=== PATIENT | female | born 1970 | race Caucasian/White ===

== ENCOUNTER 2021-06-03 18:31 | Outpatient (CLI) | payer SELFPAY | END 2021-06-03 18:32 | disposition EMS.NT | LOC: EMS 18:31 | DX: T63.461A Toxic effect of venom of wasps, accidental (unintentional), initial encounter (principal) ==

== ENCOUNTER 2021-09-24 17:16 | Outpatient (CLI) | payer OTHER | END 2021-09-24 17:17 | disposition critical access hospital (66) | LOC: EMS 17:16 | DX: R07.89 Other chest pain (principal); R06.02 Shortness of breath | CPT/HCPCS: A0425; A0429 ==

== ENCOUNTER 2021-09-24 17:53 | Inpatient (IN) | payer OTHER ==
[2021-09-24 18:32] LABS: HCT - HEMATOCRIT 43.6 % (42.0-52.0); HGB - HEMOGLOBIN 14.8 g/dL (14.0-18.0); MEAN CORPUSCULAR HEMOGLOBIN 30.2 pg (27.0-31.0); MEAN CORPUSCULAR HGB CONC 33.9 g/dL (32.0-36.0); RED CELL DISTRIBUTION WIDTH 12.7 % (12.0-15.0); WHITE BLOOD COUNT 5.7 x10^3/uL (4.8-10.8)
[2021-09-24 18:33] LABS: BASOPHILS % (AUTO) 0.5 %; EOSINOPHILS # (AUTO) 0.2 10^3/uL (0.0-0.7); EOSINOPHILS % (AUTO) 3.5 %; LYMPHOCYTES # (AUTO) 1.4 10^3/uL (1.5-3.5); LYMPHOCYTES % (AUTO) 23.7 %; MEAN PLATELET VOLUME 11.1 fL (7.4-11.4); MONOCYTES # (AUTO) 0.4 10^3/uL (0.0-1.0); MONOCYTES % (AUTO) 7.3 %; NEUTROPHILS # (AUTO) 3.7 10^3/uL (1.5-6.6); NEUTROPHILS % (AUTO) 64.7 %; PLT - PLATELET COUNT 164 10^3/uL (130-450)
--- NOTE | 2021-09-24 18:38 | ED Physician Documentation ---
History of Present Illness - Stated complaint Stated Complaint: SOA - Chief complaint Chief Complaint: Cardiac - Additonal information Additional information: 50-year-old male presents emergency department via EMS for sudden onset sharp chest pain. It began when he was walking up the roadway from the [facility]. He denies any history of similar in the past. 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 No tobacco no drugs no medications. States that when he had anesthesia in the past his heart rate dropped to less than 30. Review of Systems Constitutional: reports: Reviewed and negative Eyes: reports: Reviewed and negative Nose: reports: Reviewed and negative Throat: reports: Reviewed and negative Cardiac: reports: Chest pain / pressure Respiratory: reports: Dyspnea GI: reports: Reviewed and negative : reports: Reviewed and negative Skin: reports: Reviewed and negative PD PAST MEDICAL HISTORY - Allergies Allergies/Adverse Reactions: Allergies Allergy/AdvReac Type Severity Reaction Status Date / Time No Known Drug Allergies Allergy Verified 09/24/21 18:04 PD ED PE EXPANDED - General General: Alert, No acute distress - Cardiac Cardiac: Emanuel, Radial strong equal, Pedal strong equal, Cap refill < 2 sec. No: Murmur Present - Respiratory Respiratory: Labored, Other (Absent breath sounds left anterior and posterior lung esparza.) - Abdomen Abdomen: Normal Bowel sounds. No: Tender to palpation - Derm Derm: Normal color, Warm and dry. No: Rash - Extremities Extremities: Normal. No: Deformity, Tenderness Results - Vitals Vitals: Vital Signs - 24 hr 09/24/21 09/24/21 18:03 18:17 Temperature 37.2 C Heart Rate 69 57 L Respiratory 18 20 Rate Blood Pressure 149/85 H 135/110 H O2 Saturation 92 95 Oxygen O2 Source Room air - EKG (time done) 1801 Rate: Rate (enter#) (68) Rhythm: NSR Intervals: Prolonged CA. No: Prolonged QT QRS: Poor R wave progression Ischemia: Normal ST segments Compare to prior EKG: Old EKG unavailable Computer interpretation: Agree with computer - Labs Labs: Laboratory Tests 09/24/21 09/24/21 09/24/21 18:05 18:05 18:05 WBC RBC Hgb Hct MCV MCH MCHC RDW Plt Count MPV Neut # (Auto) Lymph # (Auto) [place] # (Auto) Eos # (Auto) Baso # (Auto) Absolute Nucleated RBC Nucleated RBC % PT INR Sodium 138 Potassium 4.1 Chloride 101 Carbon Dioxide 26 Anion Gap 11.0 BUN 24 H Creatinine 0.9 Estimated GFR (MDRD) 90 Glucose 105 H Calcium 9.3 Total Bilirubin 0.9 AST 20 ALT 17 Alkaline Phosphatase 63 Troponin I High Sens 5.5 B-Natriuretic Peptide 28 Total Protein 7.5 Albumin 4.4 Globulin 3.1 Albumin/Globulin Ratio 1.4 Lipase 38 09/24/21 09/24/21 18:25 18:30 WBC 5.7 RBC 4.90 Hgb 14.8 Hct 43.6 MCV 89.0 MCH 30.2 MCHC 33.9 RDW 12.7 Plt Count 164 MPV 11.1 Neut # (Auto) 3.7 Lymph # (Auto) 1.4 L [place] # (Auto) 0.4 Eos # (Auto) 0.2 Baso # (Auto) 0.0 Absolute Nucleated RBC 0.00 Nucleated RBC % 0.0 PT 11.0 INR 1.0 Sodium Potassium Chloride Carbon Dioxide Anion Gap BUN Creatinine Estimated GFR (MDRD) Glucose Calcium Total Bilirubin AST ALT Alkaline Phosphatase Troponin I High Sens B-Natriuretic Peptide Total Protein Albumin Globulin Albumin/Globulin Ratio Lipase - Rads (name of study) CXR Radiology: Final report received (Left pneumothorax with complete collapse of the left lung. There is mild left to right mediastinal shift.) PD MEDICAL DECISION MAKING - ED course Complexity details: reviewed results, re-evaluated patient, considered differential, d/w patient ED course: 50-year-old male presents emergency department with sudden onset left-sided chest pain. Began when he was walking up the hill from the [facility]. He endorses some shortness of breath. No radiation of the chest pain. No history of similar. Non-smoker. 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 No history of hypertension. Screening EKG was nonischemic however the chest x-ray showed a massive left- sided pneumothorax. There was some mild associated mediastinal shift however the patient was not hypoxic tachycardic or hypotensive. Dr. Villalobos was called to the bedside and she did place a 24 [place] left-sided chest tube. On reexamination the patient was having improvement in the pneumothorax though clearly not fully resolved. The patient did receive 1 mg of Versed as well as 1 mg of morphine as anxiolysis for the procedure only. This was not procedural sedation. Further care to be dictated by Dr. Villalobos. Departure - Departure Disposition: 66 [facility] DC/Xfer Clinical Impression: Pneumothorax, left
--- NOTE | 2021-09-24 18:39 | XRAY Report ---
PROCEDURE: Chest 1 View X-Ray INDICATIONS: Chest Pain TECHNIQUE: One view of the chest was acquired. COMPARISON: None FINDINGS: Surgical changes and devices: None. Lungs and pleura: There is a left pneumothorax with complete collapse of the left lung. The right l surya is clear. Mediastinum: Mediastinal contours appear normal. Heart size is normal. Mild left to right mediasti nal shift. Bones and chest wall: No suspicious bony lesions. Overlying soft tissues appear unremarkable. IMPRESSION: Left pneumothorax with complete collapse of the left lung. There is mild [id number] m ediastinal shift. Findings were discussed with Dr. Mancilla at 6:37 PM on 09/24/2021. Reviewed by: Nik Martinez on 09/24/2021 6:37 PM PST Approved by: Nik Martinez on 09/24/2021 6:37 PM [facility] Station ID: [id number]
[2021-09-24] MEDS ORDERED: lidocaine 1% 20 ML MDV SUBQ ONE (18:44)
[2021-09-24] MEDS ORDERED: MORPHINE 2 MG/ML CARPUJECT IVP STA ×2 (18:45→20:03)
[2021-09-24] MEDS ORDERED: MIDAZOLAM 2 MG/2 ML VIAL IVP STA (18:45)
[2021-09-24 18:54] LABS: BILIRUBIN,TOTAL 0.9 mg/dL (0.2-1.0); CALCIUM 9.3 mg/dL (8.5-10.3); CREATININE 0.9 mg/dL (0.6-1.2); POTASSIUM 4.1 mmol/L (3.5-5.0)
[2021-09-24 18:55] LABS: ALBUMIN 4.4 g/dL (3.2-5.5); ALBUMIN/GLOBULIN RATIO 1.4 (1.0-2.2); TOTAL PROTEIN 7.5 g/dL (6.7-8.2)
[2021-09-24] MEDS ORDERED: MORPHINE 2 MG/ML CARPUJECT IVP ONE ×2 (18:56)
[2021-09-24] MEDS ORDERED: LORazepam 2 MG/ML VIAL IVP PRN (19:38)
[2021-09-24] MEDS ORDERED: ONDANSETRON 4 MG/2 ML VIAL IVP PRN (19:38)
[2021-09-24] MEDS ORDERED: LACTATED RINGERS 1,000 ML IV SCH (20:00)
--- NOTE | 2021-09-24 20:09 | HISTORY & PHYSICAL EXAMINATION ---
HPI - Admitted From Admitted from: ED - History Obtained From History obtained from: Patient Exam limitations: No limitations - History of Present Illness Pain/Problem Location Description: Acute shortness of breath Severity at the worst: reports: Severe Pain Quality: reports: Aching Context-Pain started w/: reports: Exertion ([place] Timing: reports: Abrupt onset Duration: reports: Minutes: (About 60) Improved with: reports: Nothing Worsened by: reports: Exertion Associated symptoms: reports: Shortness of air, Feeling faint / dizzy, Palpitations HPI Comment/Other: Pleasant and generally healthy gentleman who was in his usual state of health when he experienced sudden onset of shortness of breath [place]. [place] he had a sharp pain in his chest and had acute shortness of breath. He was transported to the ED via EMS. He was evaluated and found to have a near complete left sided pneumothorax. I was consulted for definitive management. He has never had a similar episode. He doesn't have any significant underlying medical issues. He is very physically active and reports he has a resting heart rate around 50. He previously had a hernia repair and says the only issue was the monitors going off because of his heart rate. He takes no medications PMH/PSH - Past Medical History Cardiovascular: positive: None Respiratory: positive: None Neuro: positive: None Endocrine/Autoimmune: positive: None GI: positive: None : positive: None HEENT: positive: None Psych: positive: None Musculoskeletal: positive: None Derm: positive: None MRSA Hx?: No - Past Surgical History /[employer] TE[employer]ER: positive: Other (Inguinal hernia repair) Social & Family Hx - Social History Does the pt smoke?: No Does the pt have substance abuse?: No - POLST POLST Status: Full Code Meds/Allgy - Allergies Allergies/Adverse Reactions: Allergies Allergy/AdvReac Type Severity Reaction Status Date / Time No Known Drug Allergies Allergy Verified 09/24/21 18:04 Review of Systems - All Other Systems All Other Systems: reports: Reviewed and negative Exam - Vital Signs Vital Signs: Vital Signs x48h Temp Pulse Resp BP Pulse Ox 09/24/21 19:30 57 L 22 115/84 H 99 09/24/21 19:29 57 L 17 123/81 H 100 09/24/21 18:17 57 L 20 135/110 H 95 09/24/21 18:03 37.2 C 69 18 149/85 H 92 - Physical Exam General Appearance: positive: Alert, Moderate distress Eyes Bilateral: positive: Normal inspection, PERRL, EOMI ENT: positive: ENT inspection nml Neck: positive: Nml inspection Respiratory: positive: Other (No breath sounds on the left. Clear on the right) Cardiovascular: positive: Tachycardia Peripheral Pulses: positive: 1+ Abdomen: positive: Non-tender, Nml bowel sounds, No distention Back: positive: Nml inspection Skin: positive: Color nml Extremities: positive: Non-tender, Full ROM Neurologic/Psychiatric: positive: Oriented x3 Results - Lab Results Fish Bones: 09/24/21 18:25 09/24/21 18:05 Other Lab Results: Lab Results x24hrs 09/24/21 09/24/21 09/24/21 Range/Units 18:30 18:25 18:05 WBC 5.7 (4.8-10.8) x10^3/uL RBC 4.90 (4.70-6.10) 10^6/uL Hgb 14.8 (14.0-18.0) g/dL Hct 43.6 (42.0-52.0) % MCV 89.0 (80.0-94.0) fL MCH 30.2 (27.0-31.0) pg MCHC 33.9 (32.0-36.0) g/dL RDW 12.7 (12.0-15.0) % Plt Count 164 (130-450) 10^3/uL MPV 11.1 (7.4-11.4) fL Neut # (Auto) 3.7 (1.5-6.6) 10^3/uL Lymph # (Auto) 1.4 L (1.5-3.5) 10^3/uL [place] # (Auto) 0.4 (0.0-1.0) 10^3/uL Eos # (Auto) 0.2 (0.0-0.7) 10^3/uL Baso # (Auto) 0.0 (0.0-0.1) 10^3/uL Absolute Nucleated RBC 0.00 x10^3/uL Nucleated RBC % 0.0 /100WBC PT 11.0 (9.9-12.6) secs INR 1.0 (0.8-1.2) Sodium (135-145) mmol/L Potassium (3.5-5.0) mmol/L Chloride (101-111) mmol/L Carbon Dioxide (21-32) mmol/L Anion Gap (6-13) BUN (6-20) mg/dL Creatinine (0.6-1.2) mg/dL Estimated GFR (MDRD) (>89) Glucose (70-100) mg/dL Calcium (8.5-10.3) mg/dL Total Bilirubin (0.2-1.0) mg/dL AST (10-42) IU/L ALT (10-60) IU/L Alkaline Phosphatase (42-121) IU/L Troponin I High Sens (2.3-19.7) ng/L B-Natriuretic Peptide 28 (5-100) pg/mL Total Protein (6.7-8.2) g/dL Albumin (3.2-5.5) g/dL Globulin (2.1-4.2) g/dL Albumin/Globulin Ratio (1.0-2.2) Lipase (22-51) U/L 09/24/21 09/24/21 Range/Units 18:05 18:05 WBC (4.8-10.8) x10^3/uL RBC (4.70-6.10) 10^6/uL Hgb (14.0-18.0) g/dL Hct (42.0-52.0) % MCV (80.0-94.0) fL MCH (27.0-31.0) pg MCHC (32.0-36.0) g/dL RDW (12.0-15.0) % Plt Count (130-450) 10^3/uL MPV (7.4-11.4) fL Neut # (Auto) (1.5-6.6) 10^3/uL Lymph # (Auto) (1.5-3.5) 10^3/uL [place] # (Auto) (0.0-1.0) 10^3/uL Eos # (Auto) (0.0-0.7) 10^3/uL Baso # (Auto) (0.0-0.1) 10^3/uL Absolute Nucleated RBC x10^3/uL Nucleated RBC % /100WBC PT (9.9-12.6) secs INR (0.8-1.2) Sodium 138 (135-145) mmol/L Potassium 4.1 (3.5-5.0) mmol/L Chloride 101 (101-111) mmol/L Carbon Dioxide 26 (21-32) mmol/L Anion Gap 11.0 (6-13) BUN 24 H (6-20) mg/dL Creatinine 0.9 (0.6-1.2) mg/dL Estimated GFR (MDRD) 90 (>89) Glucose 105 H (70-100) mg/dL Calcium 9.3 (8.5-10.3) mg/dL Total Bilirubin 0.9 (0.2-1.0) mg/dL AST 20 (10-42) IU/L ALT 17 (10-60) IU/L Alkaline Phosphatase 63 (42-121) IU/L Troponin I High Sens 5.5 (2.3-19.7) ng/L B-Natriuretic Peptide (5-100) pg/mL Total Protein 7.5 (6.7-8.2) g/dL Albumin 4.4 (3.2-5.5) g/dL Globulin 3.1 (2.1-4.2) g/dL Albumin/Globulin Ratio 1.4 (1.0-2.2) Lipase 38 (22-51) U/L - Diagnostic Imaging Results Diagnostic Imaging Results Comments: Initial xray shows near complete left pneumothorax with near complete re- expansion after chest tube placement Impression/Plan - Problem List Problem List: Spontaneous pneumothrax in the setting of a very healthy and active 50 year old gentleman. A thoracostomy tube has been placed. We will leave it on suction over night and re-assess in the AM. CT of the chest in the AM to evaluate for cause.
--- NOTE | 2021-09-24 20:21 | XRAY Report ---
PROCEDURE: Chest for Line Placement INDICATIONS: S/P CHEST TUBE PLACEMENT TECHNIQUE: One view of the chest was acquired. COMPARISON: 09/24/2021. FINDINGS: Surgical changes and devices: There is a new left chest tube with the tip extending medially to the m ediastinum. Lungs and pleura: There is a small residual left pneumothorax, markedly decreased from the prior mark dy, with interval reexpansion of the left lung. No pleural effusions. No right pneumothorax. There ar e patchy indistinct opacities within the left lung which are nonspecific and may represent atelectasi s or areas of reexpansion edema. Mediastinum: Mediastinal contours appear normal. Heart size is normal. Bones and chest wall: No suspicious bony lesions. Overlying soft tissues appear unremarkable. IMPRESSION: 1. Interval placement of a left chest tube with marked decrease in left pneumothorax and reexpansion of the left lung. 2. Small residual left pneumothorax without evidence of tension. 3. Indistinct patchy opacities within the left lung are nonspecific and may represent atelectasis or reexpansion edema among other etiologies. Reviewed by: Gigi Youssef MD on 09/24/2021 8:20 PM PST Approved by: Gigi Youssef MD on 09/24/2021 8:20 PM PST Station ID: [id number]
[2021-09-24] MEDS: SODIUM CHLORIDE FLUSH 0.9% 10 ML SYRINGE IVP PRN ×2 (20:45→21:19)
[2021-09-24] MEDS: KETOROLAC 30 MG/ML VIAL IVP SCH (21:19)
[2021-09-24] MEDS: ACETAMINOPHEN 325 MG TABLET PO PRN (21:19)
[2021-09-24] MEDS: oxyCODONE 5 MG TABLET PO PRN (21:19)
[2021-09-24 21:49] LABS: B. PARAPERTUSSIS- RESP PCR PAN NOT DETECTED; B. PERTUSSIS- RESP PCR PANEL NOT DETECTED; C. PNEUMONIAE- RESP PCR PANEL NOT DETECTED; CORONAVIRUS 229E-RESP PCR NOT DETECTED; CORONAVIRUS HKU1-RESP PCR NOT DETECTED; CORONAVIRUS NL63-RESP PCR NOT DETECTED; CORONAVIRUS OC43-RESP PCR NOT DETECTED; HUMAN METAPNEUMOVIRUS NOT DETECTED; INFLUENZA A- RESP PCR PANEL NOT DETECTED; INFLUENZA B - RESP PCR PANEL NOT DETECTED; M. PNEUMONIAE- RESP PCR PANEL NOT DETECTED; PARAINFLUENZA VIRUS 1 NOT DETECTED; PARAINFLUENZA VIRUS 2 NOT DETECTED; PARAINFLUENZA VIRUS 3 NOT DETECTED; PARAINFLUENZA VIRUS 4 NOT DETECTED; RHINOVIRUS/ENTEROVIRUS NOT DETECTED; RSV- RESP PCR PANEL NOT DETECTED; SARS-CoV-2 -RESP PCR PANEL NOT DETECTED
[2021-09-24] MEDS: HYDROmorphone 0.5 MG/0.5 ML SYRINGE IVP PRN (23:45)
[2021-09-24] MEDS: ceFAZolin 2 GM in SODIUM CHLORIDE 0.9% 100ML 100 ML IV SCH (23:46)
[2021-09-25] MEDS ORDERED: KETOROLAC 30 MG/ML VIAL ONE (03:21)
[2021-09-25] MEDS: KETOROLAC 30 MG/ML VIAL IVP SCH (03:26)
[2021-09-25] MEDS: SODIUM CHLORIDE FLUSH 0.9% 10 ML SYRINGE IVP SCH ×3 (03:30→20:03)
[2021-09-25] MEDS: HYDROmorphone 0.5 MG/0.5 ML SYRINGE IVP PRN (06:03)
[2021-09-25] MEDS: ceFAZolin 2 GM in SODIUM CHLORIDE 0.9% 100ML 100 ML IV SCH (06:05)
[2021-09-25] MEDS: PANTOPRAZOLE 40 MG TABLET PO SCH (06:07)
[2021-09-25] MEDS: ACETAMINOPHEN 325 MG TABLET PO PRN ×3 (08:34→20:45)
[2021-09-25] MEDS: oxyCODONE 5 MG TABLET PO PRN ×4 (08:36→20:44)
[2021-09-25] MEDS ORDERED: KETOROLAC 30 MG/ML VIAL IVP SCH (09:00)
--- NOTE | 2021-09-25 09:11 | PROVIDER PROGRESS NOTE ---
Subjective - General Admit Date: 09/24/21 Procedure Date: 09/24/21 Post Op Days: 1 Procedure Performed: Left thoracostomy tube placement - Review of Systems Wound/Incisions: positive: Dressing dry and intact Drain Type: 24 F Chest tube Drain Output Description: serous General: positive: No symptoms HEENT: positive: No symptoms Pulmonary: positive: Pleuritic chest pain (Described as aching) Cardiovascular: positive: No symptoms Gastrointestinal: positive: No symptoms Genitourinary: positive: No symptoms Musculoskeletal: positive: No symptoms Skin: positive: No symptoms Psychiatric: positive: No symptoms All Other Systems: positive: Reviewed and negative - Other Other Information/Narrative: Having some aching in his left chest this AM but has not had any pain medication since last evening. Denies any shortness of breath. Objective - Patient Data Reviewed Vital Signs: Yes Vital Signs: Vital Signs x48h Temp Pulse Resp BP Pulse Ox 09/25/21 08:08 36.7 C 55 L 17 127/72 95 09/25/21 04:08 36.7 C 44 L 18 117/71 100 Weight: Weight 09/23/21 09/24/21 09/25/21 23:59 23:59 23:59 Weight (kg) 62.5 kg Intake & Output: Intake and Output Totals x24h 09/23/21 09/24/21 09/25/21 23:59 23:59 23:59 Intake Total 50 600 Output Total 400 Balance -350 600 - Lab Results Lab Results: 09/24/21 18:25 09/24/21 18:05 Other Lab Results: Lab Results x24hrs 09/24/21 09/24/21 09/24/21 Range/Units 19:52 18:30 18:25 WBC 5.7 (4.8-10.8) x10^3/uL RBC 4.90 (4.70-6.10) 10^6/uL Hgb 14.8 (14.0-18.0) g/dL Hct 43.6 (42.0-52.0) % MCV 89.0 (80.0-94.0) fL MCH 30.2 (27.0-31.0) pg MCHC 33.9 (32.0-36.0) g/dL RDW 12.7 (12.0-15.0) % Plt Count 164 (130-450) 10^3/uL MPV 11.1 (7.4-11.4) fL Neut # (Auto) 3.7 (1.5-6.6) 10^3/uL Lymph # (Auto) 1.4 L (1.5-3.5) 10^3/uL [place] # (Auto) 0.4 (0.0-1.0) 10^3/uL Eos # (Auto) 0.2 (0.0-0.7) 10^3/uL Baso # (Auto) 0.0 (0.0-0.1) 10^3/uL Absolute Nucleated RBC 0.00 x10^3/uL Nucleated RBC % 0.0 /100WBC PT 11.0 (9.9-12.6) secs INR 1.0 (0.8-1.2) Sodium (135-145) mmol/L Potassium (3.5-5.0) mmol/L Chloride (101-111) mmol/L Carbon Dioxide (21-32) mmol/L Anion Gap (6-13) BUN (6-20) mg/dL Creatinine (0.6-1.2) mg/dL Estimated GFR (MDRD) (>89) Glucose (70-100) mg/dL Calcium (8.5-10.3) mg/dL Total Bilirubin (0.2-1.0) mg/dL AST (10-42) IU/L ALT (10-60) IU/L Alkaline Phosphatase (42-121) IU/L Troponin I High Sens (2.3-19.7) ng/L B-Natriuretic Peptide (5-100) pg/mL Total Protein (6.7-8.2) g/dL Albumin (3.2-5.5) g/dL Globulin (2.1-4.2) g/dL Albumin/Globulin Ratio (1.0-2.2) Lipase (22-51) U/L Nasal Adenovirus (PCR) NOT DETECTED Nasal B. parapertussis DNA (PCR) NOT DETECTED Nasal Coronavir 229E PCR NOT DETECTED Nasal Coronavir HKU1 PCR NOT DETECTED Nasal Coronavir NL63 PCR NOT DETECTED Nasal Coronavir OC43 PCR NOT DETECTED Nasal Enterovir/Rhinovir PCR NOT DETECTED Nasal Influenza B PCR NOT DETECTED Nasal Influenza A PCR NOT DETECTED Nasal Parainfluen 1 PCR NOT DETECTED Nasal Parainfluen 2 PCR NOT DETECTED Nasal Parainfluen 3 PCR NOT DETECTED Nasal Parainfluen 4 PCR NOT DETECTED Nasal RSV (PCR) NOT DETECTED Nasal B.pertussis DNA PCR NOT DETECTED Nasal C.pneumoniae (PCR) NOT DETECTED Josh Human Metapneumo PCR NOT DETECTED Nasal M.pneumoniae (PCR) NOT DETECTED Nasal SARS-CoV-2 (PCR) NOT DETECTED 09/24/21 09/24/21 09/24/21 Range/Units 18:05 18:05 18:05 WBC (4.8-10.8) x10^3/uL RBC (4.70-6.10) 10^6/uL Hgb (14.0-18.0) g/dL Hct (42.0-52.0) % MCV (80.0-94.0) fL MCH (27.0-31.0) pg MCHC (32.0-36.0) g/dL RDW (12.0-15.0) % Plt Count (130-450) 10^3/uL MPV (7.4-11.4) fL Neut # (Auto) (1.5-6.6) 10^3/uL Lymph # (Auto) (1.5-3.5) 10^3/uL [place] # (Auto) (0.0-1.0) 10^3/uL Eos # (Auto) (0.0-0.7) 10^3/uL Baso # (Auto) (0.0-0.1) 10^3/uL Absolute Nucleated RBC x10^3/uL Nucleated RBC % /100WBC PT (9.9-12.6) secs INR (0.8-1.2) Sodium 138 (135-145) mmol/L Potassium 4.1 (3.5-5.0) mmol/L Chloride 101 (101-111) mmol/L Carbon Dioxide 26 (21-32) mmol/L Anion Gap 11.0 (6-13) BUN 24 H (6-20) mg/dL Creatinine 0.9 (0.6-1.2) mg/dL Estimated GFR (MDRD) 90 (>89) Glucose 105 H (70-100) mg/dL Calcium 9.3 (8.5-10.3) mg/dL Total Bilirubin 0.9 (0.2-1.0) mg/dL AST 20 (10-42) IU/L ALT 17 (10-60) IU/L Alkaline Phosphatase 63 (42-121) IU/L Troponin I High Sens 5.5 (2.3-19.7) ng/L B-Natriuretic Peptide 28 (5-100) pg/mL Total Protein 7.5 (6.7-8.2) g/dL Albumin 4.4 (3.2-5.5) g/dL Globulin 3.1 (2.1-4.2) g/dL Albumin/Globulin Ratio 1.4 (1.0-2.2) Lipase 38 (22-51) U/L Nasal Adenovirus (PCR) Nasal B. parapertussis DNA (PCR) Nasal Coronavir 229E PCR Nasal Coronavir HKU1 PCR Nasal Coronavir NL63 PCR Nasal Coronavir OC43 PCR Nasal Enterovir/Rhinovir PCR Nasal Influenza B PCR Nasal Influenza A PCR Nasal Parainfluen 1 PCR Nasal Parainfluen 2 PCR Nasal Parainfluen 3 PCR Nasal Parainfluen 4 PCR Nasal RSV (PCR) Nasal B.pertussis DNA PCR Nasal C.pneumoniae (PCR) Josh Human Metapneumo PCR Nasal M.pneumoniae (PCR) Nasal SARS-CoV-2 (PCR) - Current Medications Current Medications: Current Medications Generic Name Dose Route Start Last Admin Trade Name Freq PRN Reason Stop Dose Admin Acetaminophen 650 mg 09/24/21 19:38 09/25/21 08:34 Acetaminophen 325 Mg Tablet PO 650 mg Q6HR PRN Administration PAIN Hydromorphone HCl 0.5 mg 09/24/21 19:38 09/25/21 06:03 Hydromorphone 0.5 Mg/0.5 Ml Syringe IVP 0.5 mg Q2H PRN Administration PAIN Lactated Ringer's 1,000 mls @ 75 mls/hr 09/24/21 20:00 09/24/21 21:26 Lr IV 75 mls/hr .[id number] ALICE Administration Oxycodone HCl 5 mg 09/24/21 19:38 09/25/21 08:36 Oxycodone 5 Mg Tablet PO 5 mg Q4HR PRN Administration PAIN Pantoprazole Sodium 40 mg 09/25/21 07:00 09/25/21 06:07 Pantoprazole 40 Mg Tablet PO 40 mg QDAC ALICE Administration Sodium Chloride 10 ml 09/25/21 01:00 09/25/21 03:30 Sodium Chloride Flush 0.9% 10 Ml Syringe IVP Not Given 0100,0900,1700 ALICE Sodium Chloride 10 ml 09/24/21 19:38 09/24/21 21:19 Sodium Chloride Flush 0.9% 10 Ml Syringe IVP 10 ml PRN PRN Administration NEEDED PER PROVIDER ORDERS - Physical Exam Wound/Incisions: positive: Dressing dry and intact, Other (No crepitance) General Appearance: positive: No acute distress Eyes Bilateral: positive: Normal inspection, PERRL, EOMI ENT: positive: ENT inspection nml Neck: positive: Nml inspection Respiratory: positive: No respiratory distress Cardiovascular: positive: Regular rate & rhythm Abdomen: positive: Non-tender, Nml bowel sounds Skin: positive: Color nml Extremities: positive: Non-tender Neurologic/Psychiatric: positive: Oriented x3 ABX Reporting Has patient been on IV antibiotics over the past 48 hours?: Yes Impression/Plan - Problem List Problem List: 1. Spontaneous left pneumothorax in the setting of a generally healthy and active 43 year old gentleman 2. Chest tube in place and working with a large air leak with each breath - leave on suction for now. 3. Pain is well controlled with acetaminophen, toradol, oxycodone and hydromorphone. 4. CT scan of the chest today to evaluate for cause and continued air leak 5. No GI issues 6. Can discontinue oxygen
[2021-09-25] MEDS: KETOROLAC 15 MG/ML VIAL IVP SCH ×2 (09:23→15:02)
[2021-09-25] MEDS: ENOXAPARIN 40 MG/0.4 ML SYRINGE SUBQ SCH (09:23)
[2021-09-25] MEDS: LACTATED RINGERS 1,000 ML IV SCH ×2 (09:30→20:45)
[2021-09-25] MEDS ORDERED: iohexoL-300 100 ML VIAL ONE (11:25)
--- NOTE | 2021-09-25 14:39 | CT Report ---
PROCEDURE: CHEST W INDICATIONS: Left pneumothorax with air leak CONTRAST: IV CONTRAST: Optiray 320 ml: 100 PO CONTRAST: *NO PO CONTRAST TECHNIQUE: After the administration of intravenous contrast, 1 mm axial images were acquired from the pulmonary apices through the posterior costophrenic angles. Axial 5 mm soft tissue kernel reconstructions were performed as well as 8 mm axial MIP and coronal and sagittal 5 mm reformations. For radiation dose reduction, the following was used: automated exposure control, adjustment of mA and/or kV according to patient size. Exam was performed with the patient's chest tube off and on suction. COMPARISON: Radiographs from 09/24/2021. FINDINGS: Image quality: Diagnostic. Lungs and pleura: With the patient off suction, there is a large left pneumothorax with significant collapse of the left upper and lower lobes. No evidence for tension pneumothorax. Left-sided chest tu be appears appropriately positioned with the side ports seen within the pleural cavity. With suction turned on, there is reexpansion of the left lung demonstrating small residual, predominantly left upp er lobe pneumothorax. There are prominent peripheral, medial pulmonary blebs noted in the left upper lobe. Largest measures approximately 2.7 x 5.0 cm in axial dimension (image 146/series 4) and approxi mately 6.4 cm in craniocaudal dimension (coronal image 41/series 7). Moderate dependent compressive a telectasis of the bilateral lung bases. Trace bilateral pleural effusions. There is associated crowdi ng of the bronchovascular of the posterior aspect of the bilateral lower lobes. No evidence to sugges t suspicious mass lesions or suspicious pulmonary nodules. There is also mild dependent atelectasis o f the posterior left upper lobe. No septal thickening or nodularity. Central and peripheral airways a re patent and normal in caliber. Mediastinum: Heart size is normal. No pericardial effusion. No mediastinal or hilar adenopathy by size criteria. Thoracic aorta and central pulmonary arteries are normal in size. Esophagus is lawrence l in caliber. No visible hiatal hernia. Bones and chest wall: No suspicious bony lesions. No acute rib fractures. No acute vertebral body c ompression fractures. No axillary or supraclavicular adenopathy by size criteria. The thyroid is no rmal in size and there are no incidental findings. Left chest wall subcutaneous emphysema compatible with recent chest tube placement. Abdomen: Visualized upper abdominal solid organs appear normal. Upper abdominal bowel loops are nor mal in caliber. Small subcentimeter hepatic dome hypodensity is incompletely characterized but likel y represents a cyst or hemangioma. IMPRESSION: 1. Large left pneumothorax with suction turned off and no evidence for tension pneumothorax. With suc tion on, there is near complete reexpansion of the left lung with small residual left upper lobe pneu mothorax. There are prominent medial left upper lobe pulmonary blebs with the largest measuring appro ximately 2.7 x 5.0 x 6.4 cm. This finding may explain the source of patient's pneumothorax. Otherwise , moderate dependent bibasilar atelectasis without evidence of suspicious pulmonary mass or adenopath y. 2. Appropriate positioning of the left chest tube. CLINICAL RECOMMENDATION STATEMENTS: In patients <35 years with an ITN detected on CT, MRI, or extrathyroidal ultrasound, the Committee re commends further evaluation with dedicated thyroid ultrasound if the nodule is "e1 cm and has no susp icious imaging features, and if the patient has normal life expectancy. In patients "e35 years with an ITN detected on CT, MRI, or extrathyroidal ultrasound, the Committee r ecommends further evaluation with dedicated thyroid ultrasound if the nodule is "e1.5 cm and has no s uspicious imaging features, and if the patient has normal life expectancy. (ACR, 2014) Findings were discussed telephonically with Dr. Villalobos at 1437 hrs. Reviewed by: Jordi Martinez MD on 09/25/2021 2:37 PM PST Approved by: Jordi Martinez MD on 09/25/2021 2:37 PM PST Station ID: [id number]
[2021-09-25] MEDS ORDERED: iohexoL-300 100 ML VIAL IVP ONE (15:08)
[2021-09-26] MEDS: SODIUM CHLORIDE FLUSH 0.9% 10 ML SYRINGE IVP SCH ×4 (01:35→23:49)
[2021-09-26] MEDS: oxyCODONE 5 MG TABLET PO PRN ×4 (02:52→21:44)
[2021-09-26] MEDS: PANTOPRAZOLE 40 MG TABLET PO SCH (06:36)
[2021-09-26] MEDS: LACTATED RINGERS 1,000 ML IV SCH ×2 (06:37→17:51)
[2021-09-26] MEDS: DOCUSATE SODIUM 100 MG CAPSULE PO SCH (08:06)
[2021-09-26] MEDS: ACETAMINOPHEN 325 MG TABLET PO PRN ×3 (08:06→21:44)
[2021-09-26] MEDS: ENOXAPARIN 40 MG/0.4 ML SYRINGE SUBQ SCH (08:07)
[2021-09-26 14:26] LABS: BASOPHILS % (AUTO) 0.4 %; EOSINOPHILS # (AUTO) 0.2 10^3/uL (0.0-0.7); EOSINOPHILS % (AUTO) 3.5 %; HCT - HEMATOCRIT 41.7 % (42.0-52.0); HGB - HEMOGLOBIN 14.2 g/dL (14.0-18.0); LYMPHOCYTES # (AUTO) 0.9 10^3/uL (1.5-3.5); MEAN CORPUSCULAR HEMOGLOBIN 30.6 pg (27.0-31.0); MEAN CORPUSCULAR HGB CONC 34.1 g/dL (32.0-36.0); MEAN CORPUSCULAR VOLUME 89.9 fL (80.0-94.0); MEAN PLATELET VOLUME 11.2 fL (7.4-11.4); MONOCYTES # (AUTO) 0.4 10^3/uL (0.0-1.0); MONOCYTES % (AUTO) 8.5 %; NEUTROPHILS # (AUTO) 3.3 10^3/uL (1.5-6.6); NEUTROPHILS % (AUTO) 68.6 %; PLT - PLATELET COUNT 147 10^3/uL (130-450); RED BLOOD COUNT 4.64 10^6/uL (4.70-6.10); RED CELL DISTRIBUTION WIDTH 12.6 % (12.0-15.0); WHITE BLOOD COUNT 4.8 x10^3/uL (4.8-10.8)
[2021-09-26 14:36] LABS: CALCIUM 9.3 mg/dL (8.5-10.3); CREATININE 0.9 mg/dL (0.6-1.2); POTASSIUM 4.2 mmol/L (3.5-5.0)
--- NOTE | 2021-09-26 15:19 | XRAY Report ---
PROCEDURE: Chest 1 View X-Ray INDICATIONS: Left pneumothorax TECHNIQUE: One view of the chest was acquired. COMPARISON: 09/24/[address] examination dated 09/25/2021. FINDINGS: Surgical changes and devices: Left-sided chest tube. Lungs and pleura: No pleural effusions. Small left pneumothorax, not significantly changed compared to 09/25/2021, allowing for differences in modality. Lungs are clear. Mediastinum: Mediastinal contours appear normal. Heart size is normal. Bones and chest wall: No suspicious bony lesions. Overlying soft tissues appear unremarkable. IMPRESSION: No change in small left pneumothorax. Reviewed by: Berhane Hassan MD on 09/26/2021 3:18 PM PST Approved by: Berhane Hassan MD on 09/26/2021 3:18 PM PST Station ID: [id number]
--- NOTE | 2021-09-26 21:02 | PROVIDER PROGRESS NOTE ---
Subjective - General Admit Date: 09/24/21 Procedure Date: 09/24/21 Post Op Days: 2 Procedure Performed: Left thoracostomy tube placement - Review of Systems Wound/Incisions: positive: Dressing dry and intact, Other (No crepitance) Drain Type: 24 F Chest tube Drain Output Description: serous General: positive: No symptoms HEENT: positive: No symptoms Pulmonary: positive: Pleuritic chest pain (Described as aching) Cardiovascular: positive: No symptoms Gastrointestinal: positive: No symptoms Genitourinary: positive: No symptoms Musculoskeletal: positive: No symptoms Skin: positive: No symptoms Psychiatric: positive: No symptoms All Other Systems: positive: Reviewed and negative - Other Other Information/Narrative: Rl reports his pain is well controlled. He denies any shortness of breath and is tolerating a regular diet. Air leak continues Objective - Patient Data Vital Signs: Vital Signs x48h Temp Pulse Resp BP Pulse Ox 09/26/21 16:26 36.5 C 52 L 14 134/73 H 95 09/26/21 15:50 36.7 C 54 L 20 144/76 H 97 Weight: Weight 09/24/21 09/25/21 09/26/21 23:59 23:59 23:59 Weight (kg) 62.5 kg Intake & Output: Intake and Output Totals x24h 09/24/21 09/25/21 09/26/21 23:59 23:59 23:59 Intake Total 50 3081.250 2776.667 Output Total 400 1485 370 Balance -350 0801.135 4649.667 - Lab Results Lab Results: 09/26/21 14:18 09/26/21 14:18 Other Lab Results: Lab Results x24hrs 09/26/21 09/26/21 Range/Units 14:18 14:18 WBC 4.8 (4.8-10.8) x10^3/uL RBC 4.64 L (4.70-6.10) 10^6/uL Hgb 14.2 (14.0-18.0) g/dL Hct 41.7 L (42.0-52.0) % MCV 89.9 (80.0-94.0) fL MCH 30.6 (27.0-31.0) pg MCHC 34.1 (32.0-36.0) g/dL RDW 12.6 (12.0-15.0) % Plt Count 147 (130-450) 10^3/uL MPV 11.2 (7.4-11.4) fL Neut # (Auto) 3.3 (1.5-6.6) 10^3/uL Lymph # (Auto) 0.9 L (1.5-3.5) 10^3/uL [place] # (Auto) 0.4 (0.0-1.0) 10^3/uL Eos # (Auto) 0.2 (0.0-0.7) 10^3/uL Baso # (Auto) 0.0 (0.0-0.1) 10^3/uL Absolute Nucleated RBC 0.00 x10^3/uL Nucleated RBC % 0.0 /100WBC Sodium 140 (135-145) mmol/L Potassium 4.2 (3.5-5.0) mmol/L Chloride 104 (101-111) mmol/L Carbon Dioxide 28 (21-32) mmol/L Anion Gap 8.0 (6-13) BUN 14 (6-20) mg/dL Creatinine 0.9 (0.6-1.2) mg/dL Estimated GFR (MDRD) 90 (>89) Glucose 100 (70-100) mg/dL Calcium 9.3 (8.5-10.3) mg/dL - Imaging Results Imaging Results Comments: CXR shows a stable apical pneumothorax on the left - Current Medications Current Medications: Current Medications Generic Name Dose Route Start Last Admin Trade Name Freq PRN Reason Stop Dose Admin Acetaminophen 650 mg 09/24/21 19:38 09/26/21 14:45 Acetaminophen 325 Mg Tablet PO 650 mg Q6HR PRN Administration PAIN Docusate Sodium 200 mg 09/26/21 09:00 09/26/21 08:06 Docusate Sodium 100 Mg Capsule PO 200 mg DAILY ALICE Administration Enoxaparin Sodium 40 mg 09/25/21 09:00 09/26/21 08:07 Enoxaparin 40 Mg/0.4 Ml Syringe SUBQ 40 mg DAILY ALICE Administration Hydromorphone HCl 0.5 mg 09/24/21 19:38 09/25/21 06:03 Hydromorphone 0.5 Mg/0.5 Ml Syringe IVP 0.5 mg Q2H PRN Administration PAIN Lactated Ringer's 1,000 mls @ 100 mls/hr 09/25/21 09:16 09/26/21 17:51 Lr IV 100 mls/hr .Q10H ALICE Administration Oxycodone HCl 5 mg 09/24/21 19:38 09/26/21 14:45 Oxycodone 5 Mg Tablet PO 5 mg Q4HR PRN Administration PAIN Pantoprazole Sodium 40 mg 09/25/21 07:00 09/26/21 06:36 Pantoprazole 40 Mg Tablet PO 40 mg QDAC ALICE Administration Sodium Chloride 10 ml 09/25/21 01:00 09/26/21 18:04 Sodium Chloride Flush 0.9% 10 Ml Syringe IVP Not Given 0100,0900,1700 ALICE Sodium Chloride 10 ml 09/24/21 19:38 09/24/21 21:19 Sodium Chloride Flush 0.9% 10 Ml Syringe IVP 10 ml PRN PRN Administration NEEDED PER PROVIDER ORDERS - Physical Exam Wound/Incisions: positive: Dressing dry and intact General Appearance: positive: No acute distress Eyes Bilateral: positive: Normal inspection ENT: positive: ENT inspection nml Neck: positive: Nml inspection Respiratory: positive: No respiratory distress, Other (No crepitance. Audible air leak with auscultation) Cardiovascular: positive: Regular rate & rhythm Abdomen: positive: Non-tender, Nml bowel sounds Back: positive: Nml inspection Skin: positive: Color nml Extremities: positive: Non-tender Neurologic/Psychiatric: positive: Oriented x3 ABX Reporting Has patient been on IV antibiotics over the past 48 hours?: Yes Impression/Plan - Problem List Problem List: Continued left air leak and small pneumothorax after thoracostomy tube placement for spontaneous pneumothorax. I spoke with Dr. Amber Shirley today regarding the continued leak and management of the same. Unfortunately, we are not able to transfer him for VATS procedure as there are no beds available and all elective surgery has been cancelled for 2 weeks. She recommendes placement of an yesenia tional chest to tube to increase the amount of negative pressure in the chest and increase our changes of full re-expansion. I have discussed this with Rl and with his Kimberly. They are in agreement with this plan. We will plan to proceed to the operating room tomorrow about noon to place a second tube.
[2021-09-27] MEDS ORDERED: BRIMONIDINE 0.2% OPHTH DROPS 5 ML ONE (07:16)
[2021-09-27] MEDS ORDERED: TRIAMCIN/MOXIFLOX OPHTHALMIC 0.6 ML VIAL IO ONE (07:16)
[2021-09-27] MEDS ORDERED: TIMOLOL 0.5% OPHTH DROPS ONE (07:16)
[2021-09-27] MEDS ORDERED: EPINEPHrine 1 MG/ML AMP ONE (07:16)
[2021-09-27] MEDS ORDERED: BSS/LIDOCAINE/EPINEPHRINE 1 ML SYRINGE ONE (07:17)
[2021-09-27] MEDS: ENOXAPARIN 40 MG/0.4 ML SYRINGE SUBQ SCH (08:29)
[2021-09-27] MEDS: LACTATED RINGERS 1,000 ML IV SCH ×2 (08:29→19:00)
[2021-09-27] MEDS: PANTOPRAZOLE 40 MG TABLET PO SCH (08:29)
[2021-09-27] MEDS: DOCUSATE SODIUM 100 MG CAPSULE PO SCH (08:29)
[2021-09-27] MEDS: SODIUM CHLORIDE FLUSH 0.9% 10 ML SYRINGE IVP SCH ×2 (08:30→18:09)
[2021-09-27] MEDS: oxyCODONE 5 MG TABLET PO PRN ×3 (10:29→22:10)
[2021-09-27] MEDS: ACETAMINOPHEN 325 MG TABLET PO PRN ×3 (10:30→22:10)
--- NOTE | 2021-09-27 11:10 | ANESTHESIA ---
Pre-Anesthesia VS, & Labs - Diagnosis pnuemothorax - Procedure CT placement Vital Signs: Temp Pulse Resp BP Pulse Ox 36.6 C 49 L 16 149/77 H 95 09/27/21 08:13 09/27/21 08:13 09/27/21 08:13 09/27/21 08:13 09/27/21 08:13 Height: 5 ft 11 in Weight (kg): 62.5 kg Body Mass Index: 19.2 BMI Classification: Healthy weight - NPO >8 hours - Lab Results Current Lab Results: Laboratory Tests 09/26/21 14:18: Sodium 140, Potassium 4.2, Chloride 104, Carbon Dioxide 28, Anion Gap 8.0, BUN 14, Creatinine 0.9, Estimated GFR (MDRD) 90, Glucose 100, Calcium 9.3 09/26/21 14:18: WBC 4.8, RBC 4.64 L, Hgb 14.2, Hct 41.7 L, MCV 89.9, MCH 30.6, MCHC 34.1, RDW 12.6, Plt Count 147, MPV 11.2, Neut # (Auto) 3.3, Lymph # (Auto) 0.9 L, [place] # (Auto) 0.4, Eos # (Auto) 0.2, Baso # (Auto) 0.0, Absolute Nucleated RBC 0.00, Nucleated RBC % 0.0 09/24/21 18:30: PT 11.0, INR 1.0 09/24/21 18:25: WBC 5.7, RBC 4.90, Hgb 14.8, Hct 43.6, MCV 89.0, MCH 30.2, MCHC 33.9, RDW 12.7, Plt Count 164, MPV 11.1, Neut # (Auto) 3.7, Lymph # (Auto) 1.4 L , [place] # (Auto) 0.4, Eos # (Auto) 0.2, Baso # (Auto) 0.0, Absolute Nucleated RBC 0.00, Nucleated RBC % 0.0 09/24/21 18:05: B-Natriuretic Peptide 28 09/24/21 18:05: Troponin I High Sens 5.5 09/24/21 18:05: Sodium 138, Potassium 4.1, Chloride 101, Carbon Dioxide 26, Anion Gap 11.0, BUN 24 H, Creatinine 0.9, Estimated GFR (MDRD) 90, Glucose 105 H , Calcium 9.3, Total Bilirubin 0.9, AST 20, ALT 17, Alkaline Phosphatase 63, T otal Protein 7.5, Albumin 4.4, Globulin 3.1, Albumin/Globulin Ratio 1.4, Lipase 38 Fish Bones: 09/26/21 14:18 09/26/21 14:18 Home Medications and Allergies Home Medications: Ambulatory Orders No Known Home Medications 09/25/21 Active Medications Acetaminophen (Acetaminophen 325 Mg Tablet) 650 mg PO Q6HR PRN PRN Reason: PAIN Last Admin: 09/27/21 10:30 Dose: 650 mg Docusate Sodium (Docusate Sodium 100 Mg Capsule) 200 mg PO DAILY [facility] Last Admin: 09/27/21 08:29 Dose: 200 mg Enoxaparin Sodium (Enoxaparin 40 Mg/0.4 Ml Syringe) 40 mg SUBQ DAILY [facility] Last Admin: 09/27/21 08:29 Dose: 40 mg Hydromorphone HCl (Hydromorphone 0.5 Mg/0.5 Ml Syringe) 0.5 mg IVP Q2H PRN PRN Reason: PAIN Last Admin: 09/25/21 06:03 Dose: 0.5 mg Lactated Ringer's (Lr) 1,000 mls @ 100 mls/hr IV .Q10H [facility] Last Admin: 09/27/21 08:29 Dose: 100 mls/hr Lorazepam (Lorazepam 2 Mg/Ml Vial) 0.5 mg IVP Q2H PRN PRN Reason: Anxiety Ondansetron HCl (Ondansetron 4 Mg/2 Ml Vial) 4 mg IVP Q6H PRN PRN Reason: Nausea / Vomiting Oxycodone HCl (Oxycodone 5 Mg Tablet) 5 mg PO Q4HR PRN PRN Reason: PAIN Last Admin: 09/27/21 10:29 Dose: 5 mg Pantoprazole Sodium (Pantoprazole 40 Mg Tablet) 40 mg PO QDAC [facility] Last Admin: 09/27/21 08:29 Dose: 40 mg Sodium Chloride (Sodium Chloride Flush 0.9% 10 Ml Syringe) 10 ml IVP 0100,0900,1700 [facility] Last Admin: 09/27/21 08:30 Dose: Not Given Sodium Chloride (Sodium Chloride Flush 0.9% 10 Ml Syringe) 10 ml IVP PRN PRN PRN Reason: NEEDED PER PROVIDER ORDERS Last Admin: 09/24/21 21:19 Dose: 10 ml No Known Home Medications 09/25/21 Allergies/Adverse Reactions: Allergies Allergy/AdvReac Type Severity Reaction Status Date / Time No Known Drug Allergies Allergy Verified 09/24/21 18:04 Anes History & Medical History - Anesthetic History Anesthesia Complications: reports: No previous complications Family history of Anesthesia Complications: Denies Family history of Malignant Hyperthermia: Denies - Medical History Cardiovascular: reports: None, Other (hx of multiple syncopal episodes. never diagnosed) Pulmonary: reports: None Gastrointestinal: reports: None Urinary: reports: None Neuro: reports: None Musculoskeletal: reports: None Endocrine/Autoimmune: reports: None Skin: reports: None Smoking Status: Former smoker - Surgical History Gynecologic: reports: Other (Inguinal hernia repair) Exam General: Alert, Oriented x3 Dental: WNL Mouth Openin Fingerbreadth Neck Mobility: Normal Mallampati classification: II Thyromental Distance: 4-6 cm Respiratory: Decreased breath sounds, Other (L CT in place, with leak) Cardiovascular: Regular rate Plan Anesthesia Type: MAC, Other (MAC with GA as backup) Consent for Procedure(s) Verified and Reviewed: Yes Code Status: Attempt Resuscitation ASA classification: 2-Mild systemic disease Is this case an emergency?: No
[2021-09-27] MEDS ORDERED: LIDOCAINE MPF 2%-EPI 1:200000 20 ML VIAL ONE (11:14)
[2021-09-27] MEDS ORDERED: BUPIVACAINE 0.5% PF 10 ML VIAL ONE ×2 (11:14)
[2021-09-27] MEDS ORDERED: fentaNYL 100 MCG/2 ML VIAL IVP PRN (11:51)
[2021-09-27] MEDS ORDERED: METOCLOPRAMIDE 10 MG/2 ML VIAL IVP PRN (11:51)
[2021-09-27] MEDS ORDERED: ONDANSETRON 4 MG/2 ML VIAL IVP PRN (11:51)
[2021-09-27] MEDS ORDERED: ePHEDrine 50 MG/ML VIAL IVP PRN (11:51)
[2021-09-27] MEDS ORDERED: MORPHINE 2 MG/ML CARPUJECT IVP PRN (11:51)
[2021-09-27] MEDS ORDERED: NALOXONE 0.4 MG/ML VIAL IVP PRN (11:51)
[2021-09-27] MEDS ORDERED: ATROPINE ABBOJECT 1 MG/10 ML SYRINGE IVP PRN (11:51)
[2021-09-27] MEDS ORDERED: HYDROmorphone 0.5 MG/0.5 ML SYRINGE IVP PRN (11:51)
[2021-09-27] MEDS ORDERED: LACTATED RINGERS 1,000 ML IV SCH (12:00)
[2021-09-27] MEDS ORDERED: PROPOFOL 500 MG/50 ML 500 MG/50 ML VIAL ONE (12:21)
[2021-09-27] MEDS ORDERED: fentaNYL 100 MCG/2 ML VIAL ONE ×2 (12:21→12:57)
[2021-09-27] MEDS ORDERED: MIDAZOLAM 2 MG/2 ML VIAL ONE (12:21)
[2021-09-27] MEDS ORDERED: LIDOCAINE 2%-EPI 1:100000 20 ML MDV SUBQ ONE (12:23)
[2021-09-27] MEDS ORDERED: BUPIVACAINE 0.25% PF 10 ML VIAL SUBQ ONE (12:23)
[2021-09-27] MEDS ORDERED: HYDROmorphone 1 MG/ML CARPUJECT ONE (12:56)
[2021-09-27] MEDS ORDERED: LACTATED RINGERS 150 ML IV ONE (13:08)
[2021-09-27] MEDS ORDERED: LACTATED RINGERS 1,000 ML IV ONE (13:08)
--- NOTE | 2021-09-27 13:35 | XRAY Report ---
PROCEDURE: Chest for Line Placement INDICATIONS: Second left chest tube placed TECHNIQUE: One view of the chest was acquired. COMPARISON: September 26, 2021 FINDINGS: SUPPORT DEVICES: Interval placement of a second left chest tube. LUNGS/PLEURA: Spiculated densities, which may reflect atelectasis. No appreciable left pneumothorax, post second chest tube placement. MEDIASTINUM: The cardiac silhouette is upper limits of normal. BONES/SOFT TISSUES: No acute osseous abdomen Limited. Left chest wall subcutaneous emphysema. IMPRESSION: 1.No appreciable left pneumothorax, post second chest tube placement. Reviewed by: Corey Garvin MD on 09/27/2021 1:33 PM PST Approved by: Corey Garvin MD on 09/27/2021 1:33 PM PST Station ID: [id number]
[2021-09-27] MEDS: HYDROmorphone 0.5 MG/0.5 ML SYRINGE IVP PRN (19:11)
[2021-09-28] MEDS: SODIUM CHLORIDE FLUSH 0.9% 10 ML SYRINGE IVP SCH ×3 (00:16→17:00)
[2021-09-28] MEDS: HYDROmorphone 0.5 MG/0.5 ML SYRINGE IVP PRN ×2 (01:33→06:56)
[2021-09-28] MEDS: oxyCODONE 5 MG TABLET PO PRN ×4 (03:58→21:24)
[2021-09-28] MEDS: ACETAMINOPHEN 325 MG TABLET PO PRN ×4 (03:58→21:23)
[2021-09-28] MEDS: LACTATED RINGERS 1,000 ML IV SCH ×3 (04:33→23:28)
[2021-09-28] MEDS: PANTOPRAZOLE 40 MG TABLET PO SCH (06:55)
[2021-09-28] MEDS: ENOXAPARIN 40 MG/0.4 ML SYRINGE SUBQ SCH (09:30)
[2021-09-28] MEDS: DOCUSATE SODIUM 100 MG CAPSULE PO SCH (09:31)
--- NOTE | 2021-09-28 09:38 | XRAY Report ---
PROCEDURE: Chest 1 View X-Ray INDICATIONS: Recurrent pneumothorax - must stay on suction TECHNIQUE: One view of the chest was acquired. COMPARISON: Prior studies dating back to September 25, 2021 FINDINGS: SUPPORT DEVICES: 2 left chest tubes are again demonstrated. LUNGS/PLEURA: Streaky densities in the left lower lung zone, which may reflect atelectasis. No apprec iable left pneumothorax. The left lung is well aerated. MEDIASTINUM: The cardiomediastinal silhouette is within normal limits. BONES/SOFT TISSUES: Slight decreased left chest wall subcutaneous emphysema. IMPRESSION: 1.No significant interval change. Reviewed by: Corey Garvin MD on 09/28/2021 9:37 AM [facility] Approved by: Corey Garvin MD on 09/28/2021 9:37 AM [facility] Station ID: [id number]
--- NOTE | 2021-09-28 14:26 | PROVIDER PROGRESS NOTE ---
Subjective - Prog Note Date Prog Note Date: 09/28/21 Prog Note Time: 14:24 - Subjective Subjective: Patient having some continued pain at the chest tube sites, somewhat limiting deep inspiration. However no longer requiring nasal cannula. Objective - Vital Signs/Intake & Output Reviewed Vital Signs: Yes Vital Signs: Vital Signs x48h Temp Pulse Resp BP Pulse Ox 09/28/21 13:09 52 L 18 95 09/28/21 09:16 83 18 144/85 H 96 09/28/21 07:59 37.0 C 57 L 19 160/95 H 96 Intake & Output: Intake & Output 09/25/21 09/26/21 09/27/21 09/28/21 23:59 23:59 23:59 23:59 Intake Total 3081.250 3553.334 2113.333 2220 Output Total 1485 076 644 7050 Balance 6863.301 8954.334 1866.333 920 - Objective General Appearance: positive: No acute distress Respiratory: positive: No respiratory distress, Other (Breathing comfortably on room air. Left chest tube x2 to suction, with no air leak, tidaling appropriately.) Cardiovascular: positive: Regular rate & rhythm Neurologic/Psychiatric: positive: Oriented x3 - Lab Results Fish Bones: 09/26/21 14:18 09/26/21 14:18 - Diagnostic Imaging Diagnostic Imaging Results: positive: Final report reviewed Diagnostic Imaging Comments: Chest x ray demonstrates left lung is re-expanded without pneumothorax, and two chest tubes still in appropriate position Assessment/Plan - Problem List (1) Pneumothorax, left Impression: Two chest tubes in place, no further air leak today, still on suction. Will continue suction -20 today and obtain chest x ray with tubes off of suction tomorrow. If still no pneumothorax and no air leak, will place to water seal for 24 hr.
[2021-09-29] MEDS: SODIUM CHLORIDE FLUSH 0.9% 10 ML SYRINGE IVP SCH ×3 (00:14→15:53)
[2021-09-29] MEDS: ACETAMINOPHEN 325 MG TABLET PO PRN ×4 (04:01→21:44)
[2021-09-29] MEDS: oxyCODONE 5 MG TABLET PO PRN ×4 (04:01→21:44)
[2021-09-29] MEDS: LACTATED RINGERS 1,000 ML IV SCH ×2 (04:02→15:12)
[2021-09-29] MEDS: PANTOPRAZOLE 40 MG TABLET PO SCH (06:25)
[2021-09-29] MEDS: DOCUSATE SODIUM 100 MG CAPSULE PO SCH (08:24)
[2021-09-29] MEDS: ENOXAPARIN 40 MG/0.4 ML SYRINGE SUBQ SCH (08:24)
--- NOTE | 2021-09-29 10:19 | XRAY Report ---
PROCEDURE: Chest 1 View X-Ray INDICATIONS: Recurrent pneumothorax - must stay on suction TECHNIQUE: One view of the chest was acquired. COMPARISON: Chest radiographs dated between 09/24/2021 and 09/28/2021 FINDINGS: Surgical changes and devices: Left chest wall chest tube catheters with their tips overlying the medi al aspect of the left thorax. Lungs and pleura: Trace left apical pneumothorax is noted. Left lung opacities unchanged. Right lung atelectasis/scarring unchanged. No significant pleural effusion. Mediastinum: Mediastinal contours appear normal. Heart size is normal. Bones and chest wall: No suspicious bony lesions. Overlying soft tissues appear unremarkable. IMPRESSION: Trace left apical pneumothorax. Other findings unchanged. Reviewed by: Cain Lopes DO on 09/29/2021 9:18 AM [facility] Approved by: Cain Lopes DO on 09/29/2021 9:18 AM [facility] Station ID: [id number]
--- NOTE | 2021-09-29 10:28 | PROVIDER PROGRESS NOTE ---
Subjective - Prog Note Date Prog Note Date: 09/29/21 - Subjective Pt reports feeling: No change (Pain controlled, breathing well, and got up to chair and standing yesterday. Working on incentive spirometer.) Objective - Vital Signs/Intake & Output Reviewed Vital Signs: Yes Vital Signs: Vital Signs x48h Temp Pulse Resp BP Pulse Ox 09/29/21 10:00 37.4 C 63 16 123/87 H 97 09/29/21 03:54 36.8 C 49 L 14 148/94 H 95 Intake & Output: Intake & Output 09/26/21 09/27/21 09/28/21 09/29/21 23:59 23:59 23:59 23:59 Intake Total 3553.334 2113.333 2520 240 Output Total 320 417 0862 700 Balance 3148.334 1866.333 155 -460 - Objective General Appearance: positive: No acute distress Respiratory: positive: Other (Breathing comfortably on room air, two left chest tubes in place, no air leak on valsalva) Cardiovascular: positive: Regular rate & rhythm Neurologic/Psychiatric: positive: Oriented x3 - Lab Results Fish Bones: 09/26/21 14:18 09/26/21 14:18 - Diagnostic Imaging Diagnostic Imaging Results: positive: Final report reviewed (CXR this AM with trace left pneumothorax and chest tubes in appropriate position) Assessment/Plan - Problem List (1) Pneumothorax, left Impression: CXR reviewed today with trace pneumothorax Will place chest tubes to water seal today Follow up chest x ray tomorrow
[2021-09-30] MEDS: SODIUM CHLORIDE FLUSH 0.9% 10 ML SYRINGE IVP SCH ×4 (01:09→23:20)
[2021-09-30] MEDS: LACTATED RINGERS 1,000 ML IV SCH ×3 (01:09→23:52)
[2021-09-30] MEDS: oxyCODONE 5 MG TABLET PO PRN ×4 (04:05→23:19)
[2021-09-30] MEDS: ACETAMINOPHEN 325 MG TABLET PO PRN ×4 (04:05→23:19)
[2021-09-30] MEDS: PANTOPRAZOLE 40 MG TABLET PO SCH (06:28)
[2021-09-30] MEDS: ENOXAPARIN 40 MG/0.4 ML SYRINGE SUBQ SCH (08:40)
[2021-09-30] MEDS: DOCUSATE SODIUM 100 MG CAPSULE PO SCH (08:40)
--- NOTE | 2021-09-30 09:47 | XRAY Report ---
PROCEDURE: Chest 1 View X-Ray INDICATIONS: Recurrent pneumothorax - must stay on suction TECHNIQUE: One view of the chest was acquired. COMPARISON: Multiple chest radiographs the most recent from 09/29/2021 FINDINGS: Surgical changes and devices: Stable appearance of 2 left-sided chest tubes.. Lungs and pleura: Small left-sided apical pneumothorax slightly more prominent than most recent exami nation. No pleural effusions. Unchanged left opacities as well as likely atelectasis/scarring of the right lower lung. Mediastinum: Mediastinal contours appear normal. Heart size is normal. Bones and chest wall: No suspicious bony lesions. Overlying soft tissues appear unremarkable. IMPRESSION: Minimally increased very small left apical pneumothorax. Unchanged right-sided chest tubes. Reviewed by: Cain Lopes DO on 09/30/2021 8:45 AM [facility] Approved by: Cain Lopes DO on 09/30/2021 8:45 AM [facility] Station ID: [id number]
--- NOTE | 2021-09-30 10:49 | PROVIDER PROGRESS NOTE ---
Subjective - Prog Note Date Prog Note Date: 09/30/21 - Subjective Pt reports feeling: Improved (Breathing well and chest tube site pain controlled) Objective - Vital Signs/Intake & Output Reviewed Vital Signs: Yes Vital Signs: Vital Signs x48h Temp Pulse Resp BP Pulse Ox 09/30/21 08:50 36.7 C 52 L 16 131/94 H 99 Intake & Output: Intake & Output 09/27/21 09/28/21 09/29/21 09/30/21 23:59 23:59 23:59 23:59 Intake Total 2113.333 2520 2020 240 Output Total 247 2365 780 Balance 1866.667 508 5807 240 - Objective General Appearance: positive: No acute distress Respiratory: positive: Other (Breathing comfortably on room air. Left chest tube x2 to water seal with no air leaks. Anterior (old) chest tube not tidaling, but posterior (new) chest tube is tidaling appropriately.) - Lab Results Fish Bones: 09/26/21 14:18 09/26/21 14:18 - Diagnostic Imaging Diagnostic Imaging Results: positive: Final report reviewed (CXR this AM with left lung expanded, stable trace apical pneumothorax) Assessment/Plan - Problem List (1) Pneumothorax, left Impression: Stable chest x ray with expanded left lung and no air leak while on water seal. Removed anterior (old) chest tube. Will obtain post-pull CXR. If pneumothorax increasing, will put remaining tube back to suction for 24hr.
--- NOTE | 2021-09-30 11:09 | XRAY Report ---
PROCEDURE: Chest 1 View X-Ray INDICATIONS: status post chest tube removal TECHNIQUE: One view of the chest was acquired. COMPARISON: Multiple chest radiographs the most recent from today. FINDINGS: Surgical changes and devices: Interval removal of the inferior most chest tube. Stable appearance of the additional chest tube. Lungs and pleura: Small apical pneumothorax similar to most recent examination. No pleural effusion. Unchanged bilateral opacities. Mediastinum: Unchanged Bones and chest wall: Osseous structures are unchanged. Slightly increased subcutaneous emphysema marcell ng the lateral left chest wall. IMPRESSION: Status post left chest tube removal. Stable appearance of additional chest tube. Grossly unchanged small apical pneumothorax. Slightly increased subcutaneous emphysema along the lateral chest wall. Reviewed by: Cain Lopes DO on 09/30/2021 10:08 AM [facility] Approved by: Cain Lopes DO on 09/30/2021 10:08 AM [facility] Station ID: [id number]
[2021-10-01] MEDS: oxyCODONE 5 MG TABLET PO PRN ×4 (05:29→23:05)
[2021-10-01] MEDS: ACETAMINOPHEN 325 MG TABLET PO PRN ×4 (05:29→23:28)
[2021-10-01] MEDS: PANTOPRAZOLE 40 MG TABLET PO SCH (05:49)
[2021-10-01] MEDS: LACTATED RINGERS 1,000 ML IV SCH (07:34)
[2021-10-01] MEDS: DOCUSATE SODIUM 100 MG CAPSULE PO SCH (08:19)
[2021-10-01] MEDS: ENOXAPARIN 40 MG/0.4 ML SYRINGE SUBQ SCH (08:20)
[2021-10-01] MEDS: SODIUM CHLORIDE FLUSH 0.9% 10 ML SYRINGE IVP SCH ×2 (08:20→16:49)
--- NOTE | 2021-10-01 10:56 | PROVIDER PROGRESS NOTE ---
Subjective - General Admit Date: 09/24/21 Procedure Date: 09/24/21 Post Op Days: 7 Procedure Performed: Left thoracostomy tube placement - Review of Systems Wound/Incisions: positive: Dressing dry and intact Drain Type: 24 F Chest tube Drain Output Description: serous General: positive: No symptoms HEENT: positive: No symptoms Pulmonary: positive: Pleuritic chest pain (Described as aching) Cardiovascular: positive: No symptoms Gastrointestinal: positive: No symptoms Genitourinary: positive: No symptoms Musculoskeletal: positive: No symptoms Skin: positive: No symptoms Psychiatric: positive: No symptoms All Other Systems: positive: Reviewed and negative - Other Other Information/Narrative: Pain is well controlled. Getting a little depressed. Has been walking around in his room but has not been in the halls. Afebrile Objective - Patient Data Reviewed Vital Signs: Yes Vital Signs: Vital Signs x48h Temp Pulse Resp BP Pulse Ox 10/01/21 07:30 36.8 C 72 16 120/85 H 96 10/01/21 05:33 56 L 17 96 Intake & Output: Intake and Output Totals x24h 09/29/21 09/30/21 10/01/21 23:59 23:59 23:59 Intake Total 2020 1770 340 Output Total 780 80 20 Balance 1240 1690 320 - Lab Results Lab Results: 09/26/21 14:18 09/26/21 14:18 - Imaging Results Imaging Results Comments: Nothing new today - Current Medications Current Medications: Current Medications Generic Name Dose Route Start Last Admin Trade Name Freq PRN Reason Stop Dose Admin Acetaminophen 650 mg 09/24/21 19:38 10/01/21 05:29 Acetaminophen 325 Mg Tablet PO 650 mg Q6HR PRN Administration PAIN Docusate Sodium 200 mg 09/26/21 09:00 10/01/21 08:19 Docusate Sodium 100 Mg Capsule PO 200 mg DAILY ALICE Administration Enoxaparin Sodium 40 mg 09/25/21 09:00 10/01/21 08:20 Enoxaparin 40 Mg/0.4 Ml Syringe SUBQ 40 mg DAILY ALICE Administration Hydromorphone HCl 0.5 mg 09/24/21 19:38 09/28/21 06:56 Hydromorphone 0.5 Mg/0.5 Ml Syringe IVP 0.5 mg Q2H PRN Administration PAIN Oxycodone HCl 5 mg 09/24/21 19:38 10/01/21 05:29 Oxycodone 5 Mg Tablet PO 5 mg Q4HR PRN Administration PAIN Pantoprazole Sodium 40 mg 09/25/21 07:00 10/01/21 05:49 Pantoprazole 40 Mg Tablet PO 40 mg QDAC ALICE Administration Sodium Chloride 10 ml 09/25/21 01:00 10/01/21 08:20 Sodium Chloride Flush 0.9% 10 Ml Syringe IVP 10 ml 0100,0900,1700 ALICE Administration Sodium Chloride 10 ml 09/24/21 19:38 09/24/21 21:19 Sodium Chloride Flush 0.9% 10 Ml Syringe IVP 10 ml PRN PRN Administration NEEDED PER PROVIDER ORDERS - Physical Exam Wound/Incisions: positive: Dressing dry and intact General Appearance: positive: No acute distress, Alert Eyes Bilateral: positive: Normal inspection, PERRL, EOMI Neck: positive: Nml inspection Respiratory: positive: No respiratory distress, Other (Air leak only with valsalva and cough now.) Cardiovascular: positive: Regular rate & rhythm, No murmur Abdomen: positive: Non-tender Skin: positive: Color nml Neurologic/Psychiatric: positive: Oriented x3, CN's nml (2-12) ABX Reporting Has patient been on IV antibiotics over the past 48 hours?: No Impression/Plan - Problem List Problem List: Left pneumothorax due to MARGOTH bleb. Small bore tube is out and larger one with improving air leak. Will leave chest tube in place and off suction today. PA and Lat CXR this afternoon. Will reassess in the AM. Patient can wear a mask and walk in the halls. D/C IVF
--- NOTE | 2021-10-01 11:02 | OPERATIVE REPORT ---
Operative Report - General Admit Date: 09/24/21 Procedure Date: 09/27/21 Planned Procedure: Left thoracostomy tube placement (second tube) Pre-Op Diagnosis: Recurrent pneumothrax with air leak Procedure Performed: Left thoracostomy tube placement Post Op Diagnosis: Recurrent pneumothrax with air leak - Procedure Note Primary Surgeon: Wilfredo Anesthesia Provider: LINUS Palomino Anesthesia Technique: MAC Estimated Blood Loss (mL): 5 Drain/Tube Type: Other (34 F Thoracostomy tube) Indications: Incomplete lung expansion with air leak Findings: Second left chest tube in good position Complications: None apparent - Other Other Information/Narrative: After obtaining informed consent, the left chest wall was prepped and draped in the standard surgical fashion. Following infiltration with 30 mL of local anesthetic to create a field block, a yuliet was created in the skin over the leftt lateral chest wall at approximately the fifth intercostal space and posterior to the existing tube. Additional local was applied and this was carried through the skin and subcutaneous tissue to identify the space over the fifth rib. Additional local anesthetic was applied and the chest cavity was entered using a Crile clamp. The surgeon's finger was introduced into the chest cavity. The lung was noted to be collapsed. A 34 Mohawk thoracostomy tube was placed through this opening. It was hooked to -20 mm of pressure. The tube was sewn into place with interrupted nylon suture and a dry dressing was applied. Postop chest x-ray revealed the tube to be in what appears to be good position in the pleural cavity. The patient tolerated the procedure well. He was allowed to awaken from anesthesia and was transferred to the PACU in good condition.
--- NOTE | 2021-10-01 14:22 | XRAY Report ---
PROCEDURE: Chest 2 View X-Ray INDICATIONS: Left pneumothorax TECHNIQUE: 2 view(s) of the chest. COMPARISON: 09/30/2021, 10/01/2021 8:54 AM FINDINGS: Surgical changes and devices: 1 left-sided chest tube present. Lungs and pleura: Small left apical pneumothorax, stable compared to the most recent prior exam. Very small left lateral parenchymal opacity at the chest tube insertion site, likely trace pulmonary flui d or contusion. Lung volumes are low and there is mild right medial lower lung opacity, also stable. Mediastinum: Mediastinal contours are normal. Heart size is normal. Bones and chest wall: No suspicious bony abnormalities. Soft tissues appear unremarkable. IMPRESSION: 1. Stable small left apical pneumothorax. 2. No change to small bilateral opacities. Reviewed by: Ashwini Knapp MD on 10/01/2021 2:21 PM PST Approved by: Ashwini Knapp MD on 10/01/2021 2:21 PM PST Station ID: [id number]
--- NOTE | 2021-10-01 16:58 | XRAY Report ---
PROCEDURE: Chest 1 View X-Ray INDICATIONS: Recurrent pneumothorax - must stay on suction TECHNIQUE: One view of the chest was acquired. COMPARISON: Chest x-ray 09/30/2021, CT chest 09/25/2021 FINDINGS: Surgical changes and devices: None. Lungs and pleura: There is persistent appearance of trace right apical pneumothorax. Mild increased a ppearance of lingular opacity. Mediastinum: Mediastinal contours appear normal. Heart size is enlarged. Bones and chest wall: No suspicious bony lesions. Overlying soft tissues appear unremarkable. IMPRESSION: 1. Stable trace right apical pneumothorax. 2. Mild increased opacity within the lingula possibly related to atelectasis and/for pneumonia. Reviewed by: Lanny Bowers MD on 10/01/2021 4:56 PM PST Approved by: Lanny Bowers MD on 10/01/2021 4:56 PM [facility] Station ID: [id number]
[2021-10-02] MEDS: SODIUM CHLORIDE FLUSH 0.9% 10 ML SYRINGE IVP SCH ×3 (00:31→16:55)
[2021-10-02 04:58] LABS: BASOPHILS % (AUTO) 0.4 %; EOSINOPHILS # (AUTO) 0.3 10^3/uL (0.0-0.7); HCT - HEMATOCRIT 42.6 % (42.0-52.0); HGB - HEMOGLOBIN 14.6 g/dL (14.0-18.0); LYMPHOCYTES # (AUTO) 1.3 10^3/uL (1.5-3.5); LYMPHOCYTES % (AUTO) 25.1 %; MEAN CORPUSCULAR HEMOGLOBIN 30.3 pg (27.0-31.0); MEAN CORPUSCULAR HGB CONC 34.3 g/dL (32.0-36.0); MEAN CORPUSCULAR VOLUME 88.4 fL (80.0-94.0); MEAN PLATELET VOLUME 11.1 fL (7.4-11.4); MONOCYTES # (AUTO) 0.5 10^3/uL (0.0-1.0); MONOCYTES % (AUTO) 10.5 %; NEUTROPHILS % (AUTO) 58.8 %; PLT - PLATELET COUNT 162 10^3/uL (130-450); RED BLOOD COUNT 4.82 10^6/uL (4.70-6.10); RED CELL DISTRIBUTION WIDTH 12.4 % (12.0-15.0); WHITE BLOOD COUNT 5.1 x10^3/uL (4.8-10.8)
[2021-10-02] MEDS: ACETAMINOPHEN 325 MG TABLET PO PRN ×4 (05:03→23:07)
[2021-10-02] MEDS: oxyCODONE 5 MG TABLET PO PRN ×4 (05:04→23:08)
[2021-10-02 05:07] LABS: CALCIUM 9.2 mg/dL (8.5-10.3); CREATININE 0.8 mg/dL (0.6-1.2)
[2021-10-02] MEDS: PANTOPRAZOLE 40 MG TABLET PO SCH (08:41)
[2021-10-02] MEDS: DOCUSATE SODIUM 100 MG CAPSULE PO SCH (08:42)
[2021-10-02] MEDS: ENOXAPARIN 40 MG/0.4 ML SYRINGE SUBQ SCH (08:42)
--- NOTE | 2021-10-02 12:46 | PROVIDER PROGRESS NOTE ---
Subjective - General Admit Date: 09/24/21 Procedure Date: 09/27/21 Post Op Days: 5 Procedure Performed: Left thoracostomy tube placement - Review of Systems Wound/Incisions: positive: Dressing dry and intact Drain Type: 24 F Chest tube Drain Output Description: serous General: positive: No symptoms HEENT: positive: No symptoms Pulmonary: positive: Pleuritic chest pain (Described as aching) Cardiovascular: positive: No symptoms Gastrointestinal: positive: No symptoms Genitourinary: positive: No symptoms Musculoskeletal: positive: No symptoms Skin: positive: No symptoms Psychiatric: positive: No symptoms All Other Systems: positive: Reviewed and negative - Other Other Information/Narrative: Feeling well today. Pain is well controlled and he is using his IS. Objective - Patient Data Vital Signs: Vital Signs x48h Temp Pulse Resp BP Pulse Ox 10/02/21 07:37 36.8 C 60 14 123/77 95 Intake & Output: Intake and Output Totals x24h 09/30/21 10/01/21 10/02/21 23:59 23:59 23:59 Intake Total 1770 2350 1080 Output Total 80 35 0 Balance 1690 2315 1080 - Lab Results Lab Results: 10/02/21 04:12 10/02/21 04:12 Other Lab Results: Lab Results x24hrs 10/02/21 10/02/21 Range/Units 04:12 04:12 WBC 5.1 (4.8-10.8) x10^3/uL RBC 4.82 (4.70-6.10) 10^6/uL Hgb 14.6 (14.0-18.0) g/dL Hct 42.6 (42.0-52.0) % MCV 88.4 (80.0-94.0) fL MCH 30.3 (27.0-31.0) pg MCHC 34.3 (32.0-36.0) g/dL RDW 12.4 (12.0-15.0) % Plt Count 162 (130-450) 10^3/uL MPV 11.1 (7.4-11.4) fL Neut # (Auto) 3.0 (1.5-6.6) 10^3/uL Lymph # (Auto) 1.3 L (1.5-3.5) 10^3/uL Polk # (Auto) 0.5 (0.0-1.0) 10^3/uL Eos # (Auto) 0.3 (0.0-0.7) 10^3/uL Baso # (Auto) 0.0 (0.0-0.1) 10^3/uL Absolute Nucleated RBC 0.00 x10^3/uL Nucleated RBC % 0.0 /100WBC Sodium 136 (135-145) mmol/L Potassium 4.0 (3.5-5.0) mmol/L Chloride 100 L (101-111) mmol/L Carbon Dioxide 27 (21-32) mmol/L Anion Gap 9.0 (6-13) BUN 16 (6-20) mg/dL Creatinine 0.8 (0.6-1.2) mg/dL Estimated GFR (MDRD) 103 (>89) Glucose 99 (70-100) mg/dL Calcium 9.2 (8.5-10.3) mg/dL - Current Medications Current Medications: Current Medications Generic Name Dose Route Start Last Admin Trade Name Freq PRN Reason Stop Dose Admin Acetaminophen 650 mg 09/24/21 19:38 10/02/21 10:50 Acetaminophen 325 Mg Tablet PO 650 mg Q6HR PRN Administration PAIN Docusate Sodium 200 mg 09/26/21 09:00 10/02/21 08:42 Docusate Sodium 100 Mg Capsule PO 200 mg DAILY ALICE Administration Enoxaparin Sodium 40 mg 09/25/21 09:00 10/02/21 08:42 Enoxaparin 40 Mg/0.4 Ml Syringe SUBQ 40 mg DAILY ALICE Administration Hydromorphone HCl 0.5 mg 09/24/21 19:38 09/28/21 06:56 Hydromorphone 0.5 Mg/0.5 Ml Syringe IVP 0.5 mg Q2H PRN Administration PAIN Oxycodone HCl 5 mg 09/24/21 19:38 10/02/21 10:50 Oxycodone 5 Mg Tablet PO 5 mg Q4HR PRN Administration PAIN Pantoprazole Sodium 40 mg 09/25/21 07:00 10/02/21 08:41 Pantoprazole 40 Mg Tablet PO 40 mg QDAC ALICE Administration Sodium Chloride 10 ml 09/25/21 01:00 10/02/21 08:42 Sodium Chloride Flush 0.9% 10 Ml Syringe IVP 10 ml 0100,0900,1700 ALICE Administration Sodium Chloride 10 ml 09/24/21 19:38 09/24/21 21:19 Sodium Chloride Flush 0.9% 10 Ml Syringe IVP 10 ml PRN PRN Administration NEEDED PER PROVIDER ORDERS - Physical Exam Wound/Incisions: positive: Healing well, Dressing dry and intact, No drainage General Appearance: positive: No acute distress, Alert Eyes Bilateral: positive: Normal inspection Respiratory: positive: No respiratory distress, Breath sounds nml Abdomen: positive: Non-tender Comments/Other: No air leak demonstrated with either valsalva or cough. Remaining left chest tube removed and occlusive dressing applied. No repiratory distress. Will recheck xray in the AM and plan for discharge if the lung remains up.
[2021-10-03] MEDS: SODIUM CHLORIDE FLUSH 0.9% 10 ML SYRINGE IVP SCH (01:24)
[2021-10-03] MEDS: ACETAMINOPHEN 325 MG TABLET PO PRN (05:54)
[2021-10-03] MEDS: oxyCODONE 5 MG TABLET PO PRN (05:54)
[2021-10-03 08:38] VITALS: BP 120/78
--- NOTE | 2021-10-03 08:46 | Discharge Plan ---
Discharge Plan Problem Reviewed?: Yes Disposition: Home, Self Care Condition: Stable Prescriptions: oxyCODONE [Roxicodone] 5 mg PO Q4HR PRN #10 tablet PRN Reason: Pain Docusate Sodium 100Mg Capsule [Colace 100Mg Capsule] 200 mg PO DAILY #20 cap Diet: Regular Activity Restrictions: Additional Comments (You may walk as desired. No running or strenuous activity. You may walk stairs slowly.) Shower Restrictions: No Driving Restrictions: Yes (Do not drive if taking narcotic pain medications) No Smoking: If you smoke, Please STOP! Call for help. Follow-up with: Gabriel Villalobos MD [Provider Admit Priv/Credential] -
--- NOTE | 2021-10-03 12:43 | XRAY Report ---
PROCEDURE: Chest 2 View X-Ray INDICATIONS: Pneumothorax TECHNIQUE: 2 view(s) of the chest. COMPARISON: None. FINDINGS: Surgical changes and devices: Chest tube has been removed. Lungs and pleura: There is a small left apical pneumothorax appearing slightly more prominent when co mpared to prior exam. Right lower lobe opacity is unchanged. Mediastinum: Mediastinal contours are normal. Heart size is normal. Bones and chest wall: No suspicious bony abnormalities. Soft tissues appear unremarkable. IMPRESSION: Persistent small left apical pneumothorax, questionably minimally more prominent when co mpared to prior exam. However, this could be secondary to inspiratory/expiratory status. However, elis se interval clinical and imaging follow-up is recommended. Reviewed by: Lanny Bowers MD on 10/03/2021 12:41 PM PST Approved by: Lanny Bowers MD on 10/03/2021 12:41 PM [facility] Station ID: [id number]
--- NOTE | 2021-10-17 12:37 | OPERATIVE REPORT ---
Operative Report - General Admit Date: 09/24/21 Procedure Date: 09/24/21 Planned Procedure: Left thoracostomy tube Pre-Op Diagnosis: Large spontaneous left pneumothorax Procedure Performed: Left thoracostomy tube placement Post Op Diagnosis: Complete spontaneous pneumothorax - Procedure Note Primary Surgeon: Wilfredo Anesthesia Technique: Local Pathology: None Estimated Blood Loss (mL): 5 Drain/Tube Type: Other (20F thoracostomy tube) Indications: Complete left pneumothorax with mediastinal shift Findings: Chest tube in good position anteriorly with intermittent air leak Complications: None apparent - Other Other Information/Narrative: After obtaining informed consent, the left chest wall was prepped and draped in the standard surgical fashion. Following infiltration with 30 mL of local anesthetic to create a field block, a yuliet was created in the skin over the left lateral chest wall at approximately the fifth intercostal space. Additional local was applied and this was carried through the skin and subcutaneous tissue to identify the space over the fifth rib. Additional local anesthetic was applied and the chest cavity was entered using a Crile clamp. The surgeon's finger was introduced into the chest cavity. The lung was noted to be completely collapsed and a davison of air was appreciated upon entering the chest cavity. A 20 Turkish thoracostomy tube was placed through this opening. It was hooked to - 20 mm of pressure. The tube was sewn into place with interrupted nylon suture and a dry dressing was applied. Postop chest x-ray revealed the tube to be in what appears to be good position in the anterior pleural cavity. The patient tolerated the procedure well.
--- NOTE | 2021-10-17 12:41 | DISCHARGE SUMMARY ---
"Discharge Summary Admit Date: 09/24/21 Discharge Date: 10/03/21 Discharging Provider: Wilfredo Code Status: Attempt Resuscitation Condition at Discharge: Stable Discharge Disposition: 01 Home, Self Care - DIAGNOSES Admission Diagnoses: Complete left spontaneous pneumothorax Discharge Diagnoses with Status of Each Condition: Resolved - HPI History of Present Illness: Mr. Gutierrez is a pleasant 50-year-old gentleman who presented to the emergency department via EMS on the day of admission secondary to chest pain. He was found to have a complete left-sided spontaneous pneumothorax. - CONSULTS | PROCEDURES Procedures: 1. Left thoracostomy tube placement on the date of admission 2.Second left thoracostomy tube placement posterior to the first. - HOSPITAL COURSE Hospital Course: The patient was admitted to the [facility] unit on observation and chest tube management. He continued to have an intermittent air leak from his tube. I consulted Dr. Amber Luna at [facility] who recommended placement of a second chest tube. The patient was taken to the operating room where an additional larger bore tube was placed in the thoracic cavity. Over the next 24 hours, the air leak resolved. We kept the tube on waterseal an extra 24 hours and then removed the smaller bore chest tube that had been placed more anteriorly. Unfortunately when the first tube came out, the air leak recurred but it did resolve over the next 48 hours. We were finally able to pull the final chest tube. The lung has stayed inflated. His pain is well controlled with oral meds. He is ready to be discharged to his home in the care of his family. He will follow-up with me in 2 weeks with a chest x-ray. - ALLERGIES Allergies/Adverse Reactions: Allergies Allergy/AdvReac Type Severity Reaction Status Date / Time No Known Drug Allergies Allergy Verified 09/24/21 18:04 - MEDICATIONS Home Medications: Ambulatory Orders Medication Instructions Recorded Confirmed Docusate Sodium 100Mg Capsule 200 mg PO DAILY #20 cap 10/03/21 [Colace 100Mg Capsule] oxyCODONE [Roxicodone] 5 mg PO Q4HR PRN #10 tablet 10/03/21 - PHYSICAL EXAM AT DISCHARGE General Appearance: positive: No acute distress, Alert Eyes Bilateral: positive: Normal inspection, PERRL, EOMI ENT: positive: ENT inspection nml Neck: positive: Nml inspection Respiratory: positive: Chest non-tender, No respiratory distress, Breath sounds nml Cardiovascular: positive: Regular rate & rhythm Peripheral Pulses: positive: 2+ Abdomen: positive: Non-tender Back: positive: Nml inspection Skin: positive: Color nml Extremities: positive: Full ROM Neurologic/Psychiatric: positive: Oriented x3 - LABS Result Diagrams: 10/02/21 04:12 10/02/21 04:12 - QUALITY (Female Hip Fx Only) Was patient sent home on osteoporosis medication?: No - FOLLOW UP Follow Up: 2 weeks at [facility] - TIME SPENT Time Spent in Discharge (Minutes): 15"
== END 2021-10-03 10:10 | disposition home or self-care (01) | DRG 201 ==
LOC: EDUNIT# → EDSEX → ED 17:53 → MS3 19:38 → ICU 09-27 13:35
PROVIDERS: ADMIT Surgery; ATTEND Surgery
PROC: 0W9B30Z Drainage of Left Pleural Cavity with Drainage Device, Percutaneous Approach (ICD-10-PCS; principal; 2021-09-27 12:00)
DX: J93.11 Primary spontaneous pneumothorax (principal); Z20.822 Contact with and (suspected) exposure to COVID-19
CPT/HCPCS: 0202U; 32551; 36415; 71045; 71046; 71260; 80048; 80053; 83690; 83880; 84484; 85025; 85610; 93005; 96374; 99231; 99283; 99285; A9270; J1170; J1650; J7120; Q9967; 96375

== ENCOUNTER 2021-10-18 14:13 | Outpatient (CLI) | payer OTHER ==
--- NOTE | 2021-10-18 16:27 | XRAY Report ---
PROCEDURE: Chest 2 View X-Ray INDICATIONS: F/U LT PNEUMOTHORAX TECHNIQUE: 2 view(s) of the chest. COMPARISON: 10/03/2021, 10/01/2021. FINDINGS: Surgical changes and devices: None. Lungs and pleura: Linear atelectasis in left lower lung field is seen. No obvious pneumothorax is not ed on the current study. Right lung is clear. No pleural effusion. Mediastinum: Mediastinal contours are normal. Heart size is normal. Bones and chest wall: No suspicious bony abnormalities. Soft tissues appear unremarkable. IMPRESSION: Interval resolution of patient's known left apical pneumothorax. No obvious pneumothorax is seen on the current study. Linear scarring/atelectasis in left lower lung field. Right lung is cl ear. Reviewed by: Huang Ash MD on 10/18/2021 4:26 PM PST Approved by: Huang Ash MD on 10/18/2021 4:26 PM PST Station ID: [id number]
== END 2021-10-18 14:14 | disposition home or self-care (01) ==
LOC: DI.WOS 14:13
PROVIDERS: ATTEND Surgery
DX: Z09 Encounter for follow-up examination after completed treatment for conditions other than malignant neoplasm (principal); Z87.09 Personal history of other diseases of the respiratory system; J98.4 Other disorders of lung; J98.11 Atelectasis